=== PATIENT | male | born 1935 | race Caucasian/White ===

== ENCOUNTER → 2016-11-04 | Outpatient (REF) | payer MEDICARE ==
[2016-11-04 15:12] LABS: BASO % 0.5 % (0.0-1.0); EOS # 0.3 K/mm3 (0.0-0.50); EOS % 3.8 % (0.0-3.0); LARGE UNSTAINED CELL # 0.1 K/mm3 (0.0-0.4); LARGE UNSTAINED CELL % 1.9 % (0.0-4.0); LYMPH # 1.4 K/mm3 (1.5-4.5); MEAN CORPUSCULAR HEMOGLOBIN 30.5 pg (27.0-33.0); MEAN CORPUSCULAR HGB CONC 31.5 g/dl (32.0-36.5); MEAN CORPUSCULAR VOLUME 96.7 fl (80.0-96.0); MONO # 0.7 K/mm3 (0.0-0.8); MONO % 9.6 % (0.0-5.0); NEUTROPHILS # 4.9 K/mm3 (1.8-7.7); NEUTROPHILS % 67.2 % (36.0-66.0); PLATELET COUNT, AUTOMATED 197 k/mm3 (150-450); RED CELL DISTRIBUTION WIDTH 12.7 % (11.5-14.5); WHITE BLOOD COUNT 7.3 K/mm3 (4.0-10.0)
[2016-11-04 15:19] LABS: ALBUMIN 4.2 GM/DL (3.2-5.2); ALBUMIN/GLOBULIN RATIO 1.14 (1.00-1.93); ALKALINE PHOSPHATASE 139 U/L (45-117); ALT/SGPT 17 U/L (12-78); ANION GAP 11 MEQ/L (8-16); AST/SGOT 13 U/L (15-37); BILIRUBIN,TOTAL 0.9 MG/DL (0.2-1.0); BLOOD UREA NITROGEN 19 MG/DL (7-18); CALCIUM LEVEL 9.1 MG/DL (8.8-10.2); CARBON DIOXIDE LEVEL 28 MEQ/L (21-32); CHLORIDE LEVEL 105 MEQ/L (98-107); CREATININE FOR GFR 1.07 MG/DL (0.70-1.30); GLOMERULAR FILTRATION RATE > 60.0 (>42); GLUCOSE, FASTING 87 MG/DL (83-110); POTASSIUM SERUM 4.3 MEQ/L (3.5-5.1); SODIUM LEVEL 144 MEQ/L (136-145); TOTAL PROTEIN 7.9 GM/DL (6.4-8.2)
[2016-11-04 15:24] LABS: FOLATE 7.7 NG/ML (>5.4); VITAMIN B12 LEVEL 1309 PG/ML (247-911)
[2016-11-04 15:54] LABS: ERYTHROCYTE SEDIMENTATION RATE 5 mm/hr (0-20)
[2016-11-07 14:10] LABS: SJOGREN'S ANTI SS-A <0.2 AI (0.0-0.9); SJOGREN'S ANTI SS-B 3.9 AI (0.0-0.9); VITAMIN E LEVEL 9.5 mg/L (5.3-17.5)
== END ==
LOC: M LABNEURO 13:48
PROVIDERS: ATTEND Psychiatry & Neurology Neurology
DX: G62.9 Polyneuropathy, unspecified (principal)

== ENCOUNTER → 2016-11-14 | Outpatient (CLI) | payer MEDICARE ==
--- NOTE | 2016-11-16 10:07 | REP ---
Clinical: Foreign body. Technique: Brock and lateral views of the orbits. Findings: Right-sided ventriculoperitoneal shunt noted. No radiodense metallic foreign body identified. The osseous structures are grossly intact and normal. Impression: Appropriate MRI clearance. No radiodense metallic foreign body identified. Signed by Lon Jefferson MD 11/14/2016 01:37 P
== END ==
LOC: M LRY 12:49
PROVIDERS: ATTEND Psychiatry & Neurology Neurology
DX: T15.91XA Foreign body on external eye, part unspecified, right eye, initial encounter (principal); T15.92XA Foreign body on external eye, part unspecified, left eye, initial encounter; X58.XXXA Exposure to other specified factors, initial encounter; Y93.9 Activity, unspecified; Y92.9 Unspecified place or not applicable; Y99.8 Other external cause status

== ENCOUNTER → 2018-09-10 | Outpatient (REF) | payer MEDICARE ==
[2018-09-10 17:25] LABS: ALBUMIN 3.7 GM/DL (3.2-5.2); ALT/SGPT 25 U/L (12-78); BILIRUBIN,TOTAL 0.7 MG/DL (0.2-1.0); BLOOD UREA NITROGEN 25 MG/DL (7-18); CALCIUM LEVEL 8.7 MG/DL (8.8-10.2); CARBON DIOXIDE LEVEL 27 MEQ/L (21-32); CHLORIDE LEVEL 105 MEQ/L (98-107); CHOLESTEROL LEVEL 147 MG/DL (<200); GLOMERULAR FILTRATION RATE > 60.0 (>35); GLUCOSE, FASTING 83 MG/DL (70-100); HDL CHOLESTEROL 44 MG/DL (>40); LDL CHOLESTEROL 92 MG/DL (<100); NON-HDL-C 103 MG/DL; POTASSIUM SERUM 4.5 MEQ/L (3.5-5.1); SODIUM LEVEL 142 MEQ/L (136-145); TOTAL PROTEIN 7.3 GM/DL (6.4-8.2); TRIGLYCERIDES LEVEL 55 MG/DL (<150)
[2018-09-10 17:29] LABS: HEMATOCRIT 39.8 % (42.0-52.0); HEMOGLOBIN 12.8 g/dl (13.5-17.5); MEAN CORPUSCULAR HEMOGLOBIN 29.9 pg (27.0-33.0); MEAN CORPUSCULAR HGB CONC 32.2 g/dl (32.0-36.5); PLATELET COUNT, AUTOMATED 153 10^3/uL (150-450); RED BLOOD COUNT 4.28 10^6/uL (4.30-6.10); WHITE BLOOD COUNT 5.1 10^3/uL (4.0-10.0)
[2018-09-10 17:34] LABS: MALB URINE SIEMENS 53.9 MG/L; MAU/CREAT RATIO 27.5 MCG/MG (0.0-30.0)
== END ==
LOC: M SFHCLERA 09:50
PROVIDERS: ATTEND Family Medicine
DX: I51.9 Heart disease, unspecified (principal); F32.9 Major depressive disorder, single episode, unspecified; R41.3 Other amnesia; I10 Essential (primary) hypertension; E78.49 Other hyperlipidemia

== ENCOUNTER → 2018-10-15 | Outpatient (CLI) | payer MEDICARE ==
--- NOTE | 2018-10-17 15:02 | DEXA ---
AP SPINE L1 - L4 1.004 -1.5 -1.1 LT FEMUR TOTAL 0.757 -2.0 -1.2 LT NECK 0.656 -2.7 -1.6 RT FEMUR TOTAL 0.805 -1.6 -0.9 RT NECK 0.631 -2.9 -1.8 TOTAL BODY TOTAL OTHER L1-L2 0.913 -2.2 -1.7 COMMENTS: There is low bone density of the spine. There is osteoporosis of the left hip. There is osteoporosis of the right hip. There is degenerative change in the spine which may artificially elevate the BMD. FOLLOW-UP: Recommendation for the next bone density exam: 2 years. ANGIE
== END ==
LOC: M WHC 13:36
PROVIDERS: ATTEND Family Medicine
DX: Z13.820 Encounter for screening for osteoporosis (principal)

== ENCOUNTER → 2018-12-04 | Outpatient (REF) | payer MEDICARE ==
[2018-12-04 18:32] LABS: PTH INTACT 56.4 PG/ML (18.5-88.0); TOTAL 25(OH) VITAMIN D 45.2 NG/ML (30.0-100.0)
== END ==
LOC: M SFHCPLAZ 15:21
PROVIDERS: ATTEND Family Medicine
DX: M81.0 Age-related osteoporosis without current pathological fracture (principal)

== ENCOUNTER → 2020-02-03 | Outpatient (REF) | payer MEDICARE ==
[2020-02-03 12:40] LABS: ALBUMIN 3.6 GM/DL (3.2-5.2); ALT/SGPT 16 U/L (12-78); BILIRUBIN,TOTAL 0.9 MG/DL (0.2-1.0); BLOOD UREA NITROGEN 19 MG/DL (7-18); CALCIUM LEVEL 8.6 MG/DL (8.8-10.2); CARBON DIOXIDE LEVEL 25 MEQ/L (21-32); CHLORIDE LEVEL 108 MEQ/L (98-107); CHOLESTEROL LEVEL 153 MG/DL (<200); CREATININE FOR GFR 1.01 MG/DL (0.70-1.30); GLOMERULAR FILTRATION RATE > 60.0 (>35); GLUCOSE, FASTING 82 MG/DL (70-100); HDL CHOLESTEROL 36 MG/DL (>40); LDL CHOLESTEROL 100 MG/DL (<100); NON-HDL-C 117 MG/DL; POTASSIUM SERUM 4.2 MEQ/L (3.5-5.1); SODIUM LEVEL 140 MEQ/L (136-145); TOTAL PROTEIN 7.6 GM/DL (6.4-8.2); TRIGLYCERIDES LEVEL 83 MG/DL (<150)
[2020-02-03 13:17] LABS: TOTAL 25(OH) VITAMIN D 42.6 NG/ML (30.0-100.0)
== END ==
LOC: M SFHCPLAZ 09:42
PROVIDERS: ATTEND Family Medicine
DX: I11.0 Hypertensive heart disease with heart failure (principal); E78.2 Mixed hyperlipidemia; E55.9 Vitamin D deficiency, unspecified; M81.0 Age-related osteoporosis without current pathological fracture

== ENCOUNTER → 2021-01-21 | Outpatient (REF) | payer MEDICARE | LOC: M SFHCPLAZ 16:46 | PROVIDERS: ATTEND Family Medicine | DX: C44.622 Squamous cell carcinoma of skin of right upper limb, including shoulder (principal); C44.311 Basal cell carcinoma of skin of nose; L57.0 Actinic keratosis ==

== ENCOUNTER → 2021-02-23 | Outpatient (REF) | payer MEDICARE | LOC: M LAB REF 09:14 | PROVIDERS: ATTEND Dermatology | DX: L57.0 Actinic keratosis (principal); L57.8 Other skin changes due to chronic exposure to nonionizing radiation | CPT/HCPCS: 11623; 13132; 88305; 88331; G0463 ==

== ENCOUNTER → 2021-04-19 | Outpatient (CLI) | payer MEDICARE ==
[2021-04-19 11:42] LABS: HEMATOCRIT 43.4 % (42.0-52.0); HEMOGLOBIN 13.8 g/dl (13.5-17.5); MEAN CORPUSCULAR HEMOGLOBIN 27.9 pg (27.0-33.0); MEAN CORPUSCULAR HGB CONC 31.8 g/dl (32.0-36.5); MEAN CORPUSCULAR VOLUME 87.7 fl (80.0-96.0); PLATELET COUNT, AUTOMATED 110 10^3/uL (150-450); RED BLOOD COUNT 4.95 10^6/uL (4.30-6.10); WHITE BLOOD COUNT 6.7 10^3/uL (4.0-10.0)
[2021-04-19 13:12] LABS: ALBUMIN 3.4 GM/DL (3.2-5.2); BILIRUBIN,TOTAL 0.8 MG/DL (0.2-1.0); CALCIUM LEVEL 8.7 MG/DL (8.8-10.2); CHOLESTEROL RISK RATIO 3.864 (<5); CREATININE FOR GFR 1.25 MG/DL (0.70-1.30); GLOMERULAR FILTRATION RATE 58.6 (>35); POTASSIUM SERUM 4.1 MEQ/L (3.5-5.1); TOTAL PROTEIN 7.7 GM/DL (6.4-8.2)
== END ==
LOC: M WUC 09:53
PROVIDERS: ATTEND Family Medicine
DX: I11.0 Hypertensive heart disease with heart failure (principal); M81.0 Age-related osteoporosis without current pathological fracture; E78.2 Mixed hyperlipidemia; E55.9 Vitamin D deficiency, unspecified; D49.2 Neoplasm of unspecified behavior of bone, soft tissue, and skin

== ENCOUNTER 2021-07-11 13:22 | Inpatient (IN) | payer MEDICARE ==
[~2021-07-11] VITALS: Ht 167.6 cm; Wt 64.6 kg
[2021-07-11] MEDS ORDERED: LABETALOL 100MG/20ML VIAL IV STA ×2 (13:39→15:43)
[2021-07-11] MEDS ORDERED: ISOVUE-370 76% 100ML VIAL As Ordered ONE (13:56)
[2021-07-11 14:06] LABS: BASO % 0.3 % (0.0-1.0); EOS % 0.3 % (0.0-3.0); HEMOGLOBIN 15.2 g/dl (13.5-17.5); LYMPH % 15.9 % (24.0-44.0); MEAN CORPUSCULAR HEMOGLOBIN 27.6 pg (27.0-33.0); MEAN CORPUSCULAR HGB CONC 31.7 g/dl (32.0-36.5); MEAN CORPUSCULAR VOLUME 87.3 fl (80.0-96.0); MONO # 0.8 10^3/uL (0.0-0.8); MONO % 13.5 % (2.0-8.0); NEUTROPHILS # 4.3 10^3/uL (1.5-8.5); NEUTROPHILS % 69.4 % (36.0-66.0); WHITE BLOOD COUNT 6.2 10^3/uL (4.0-10.0)
[2021-07-11 14:16] LABS: PLATELET COUNT, AUTOMATED 94 10^3/uL (150-450)
[2021-07-11 14:45] LABS: RSV AMPLIFICATION NEGATIVE (NEGATIVE)
[2021-07-11 14:54] LABS: INR 1.14
[2021-07-11 14:55] LABS: PARTIAL THROMBOPLASTIN TIME 32.3 SECONDS (25.9-37.0)
[2021-07-11 15:20] LABS: BLOOD UREA NITROGEN 18 MG/DL (7-18); CALCIUM LEVEL 8.3 MG/DL (8.8-10.2); CARBON DIOXIDE LEVEL 27 MEQ/L (21-32); CHLORIDE LEVEL 105 MEQ/L (98-107); CK-MB VALUE MASS < 1.0 NG/ML (<3.6); CPK CREATINE PHOSPHOKINASE 47 U/L (39-308); CREATININE FOR GFR 1.24 MG/DL (0.70-1.30); GLOMERULAR FILTRATION RATE 59.1 (>35); GLUCOSE, FASTING 93 MG/DL (70-100); MB/CK RELATIVE INDEX 2.13 (< OR =4); SODIUM LEVEL 139 MEQ/L (136-145); TROPONIN I < 0.02 NG/ML (< 0.10)
[2021-07-11] MEDS ORDERED: PARO5TAB PO (17:05)
[2021-07-11] MEDS ORDERED: ATEN25TA PO (17:05)
[2021-07-11] MEDS ORDERED: ATOR1TAB21 PO (17:05)
[2021-07-11] MEDS ORDERED: ALEN10TA5 PO (17:05)
[2021-07-11 18:25] VITALS: BP 170/100
[2021-07-11] MEDS ORDERED: VITA500T41 PO (18:36)
[2021-07-11] MEDS ORDERED: D31000TA2 PO (18:36)
[2021-07-11 18:39] VITALS: BP 170/100
[2021-07-11] MEDS ORDERED: HOME MED LIST COMPLETE! XX SCH (18:40)
[2021-07-11] MEDS: ASPIRIN 300 MG SUPP PR SCH (19:45)
[2021-07-11 20:00] VITALS: BP 169/89
[2021-07-11 23:45] VITALS: BP 142/84
[2021-07-12 04:00] VITALS: BP 164/78
[2021-07-12 05:15] LABS: BASO % 0.1 % (0.0-1.0); HEMATOCRIT 40.5 % (42.0-52.0); LYMPH # 1.2 10^3/uL (1.5-5.0); LYMPH % 17.7 % (24.0-44.0); MEAN CORPUSCULAR HEMOGLOBIN 27.7 pg (27.0-33.0); MEAN CORPUSCULAR HGB CONC 32.3 g/dl (32.0-36.5); MEAN CORPUSCULAR VOLUME 85.6 fl (80.0-96.0); MONO % 14.5 % (2.0-8.0); NEUTROPHILS # 4.6 10^3/uL (1.5-8.5); NEUTROPHILS % 66.8 % (36.0-66.0); PLATELET COUNT, AUTOMATED 100 10^3/uL (150-450); RED BLOOD COUNT 4.73 10^6/uL (4.30-6.10); WHITE BLOOD COUNT 6.9 10^3/uL (4.0-10.0)
[2021-07-12 05:17] LABS: HEMOGLOBIN 13.1 g/dl (13.5-17.5)
[2021-07-12 05:29] LABS: ALBUMIN 3.4 GM/DL (3.2-5.2); BILIRUBIN,TOTAL 1.2 MG/DL (0.2-1.0); CALCIUM LEVEL 9.1 MG/DL (8.8-10.2); CREATININE FOR GFR 1.36 MG/DL (0.70-1.30); GLOMERULAR FILTRATION RATE 53.1 (>35); TOTAL PROTEIN 7.7 GM/DL (6.4-8.2)
[2021-07-12 08:00] VITALS: BP 168/94
[2021-07-12] MEDS: ASPIRIN 300 MG SUPP PR SCH (08:11)
[2021-07-12 10:44] LABS: TOTAL 25(OH) VITAMIN D 49.2 NG/ML (30.0-100.0)
[2021-07-12 11:29] LABS: CHOLESTEROL RISK RATIO 4.324 (<5); FREE THYROXINE INDEX 3.4 % (1.4-3.8); THYROID STIMULATING HORMONE 0.435 uIU/ML (0.358-3.740); THYROXINE (T4) 9.9 UG/DL (4.5-12.0)
[2021-07-12 12:00] VITALS: BP 182/102
[2021-07-12] MEDS: CYANOCOBALAMIN 500 MCG TAB PO SCH (13:31)
[2021-07-12] MEDS: VITAMIN D 1,000 INTERNATIONAL UNITS TABLET PO SCH (13:31)
[2021-07-12] MEDS: ATORVASTATIN 20 MG TAB PO SCH (13:31)
[2021-07-12] MEDS: PARoxetine 10MG TABLET PO SCH (13:31)
[2021-07-12] MEDS: atenoloL 25 MG TAB PO SCH (13:31)
[2021-07-12 15:00] VITALS: BP 154/80
[2021-07-12 16:00] VITALS: BP 162/98
[2021-07-12 20:00] VITALS: BP 135/94
[2021-07-13] VITALS: BP 132/94
[2021-07-13 04:00] VITALS: BP 117/88
[2021-07-13 05:46] LABS: BASO % 0.3 % (0.0-1.0); EOS % 0.2 % (0.0-3.0); HEMATOCRIT 46.2 % (42.0-52.0); HEMOGLOBIN 14.8 g/dl (13.5-17.5); LYMPH # 1.9 10^3/uL (1.5-5.0); LYMPH % 21.5 % (24.0-44.0); MEAN CORPUSCULAR HEMOGLOBIN 27.6 pg (27.0-33.0); MONO # 1.9 10^3/uL (0.0-0.8); MONO % 21.2 % (2.0-8.0); NEUTROPHILS % 56.1 % (36.0-66.0); RED BLOOD COUNT 5.37 10^6/uL (4.30-6.10); WHITE BLOOD COUNT 8.9 10^3/uL (4.0-10.0)
[2021-07-13 06:02] LABS: BLOOD UREA NITROGEN 22 MG/DL (7-18); CALCIUM LEVEL 8.9 MG/DL (8.8-10.2); CARBON DIOXIDE LEVEL 23 MEQ/L (21-32); CHLORIDE LEVEL 108 MEQ/L (98-107); GLOMERULAR FILTRATION RATE > 60.0 (>35); GLUCOSE, FASTING 98 MG/DL (70-100); SODIUM LEVEL 139 MEQ/L (136-145)
[2021-07-13 06:18] LABS: PLATELET COUNT, AUTOMATED 97 10^3/uL (150-450)
[2021-07-13 08:00] VITALS: BP 142/93
[2021-07-13 08:27] LABS: CHOLESTEROL LEVEL 161 MG/DL (<200); HDL CHOLESTEROL 35 MG/DL (>40); LDL CHOLESTEROL 109 MG/DL (<100); NON-HDL-C 126 MG/DL; TRIGLYCERIDES LEVEL 84 MG/DL (<150)
[2021-07-13] MEDS: PARoxetine 10MG TABLET PO SCH (08:43)
[2021-07-13] MEDS: VITAMIN D 1,000 INTERNATIONAL UNITS TABLET PO SCH (08:43)
[2021-07-13] MEDS: ATORVASTATIN 20 MG TAB PO SCH (08:43)
[2021-07-13] MEDS: atenoloL 25 MG TAB PO SCH ×2 (08:43→10:02)
[2021-07-13] MEDS: CYANOCOBALAMIN 500 MCG TAB PO SCH (08:43)
[2021-07-13] MEDS ORDERED: ASPIRIN 81 MG CHEW TABLET PO SCH (09:00)
[2021-07-13 12:00] VITALS: BP 138/96
[2021-07-13] MEDS: APIXABAN 5 MG TAB (ELIQUIS) PO SCH ×2 (13:28→21:00)
[2021-07-13 16:00] VITALS: BP 138/96
[2021-07-13 20:00] VITALS: BP 143/98
[2021-07-14] VITALS (7 sets, daily range): BP systolic 113–157; BP diastolic 70–96
[2021-07-14 04:30] LABS: HEMATOCRIT 46.6 % (42.0-52.0); HEMOGLOBIN 15.2 g/dl (13.5-17.5); MEAN CORPUSCULAR HEMOGLOBIN 27.7 pg (27.0-33.0); MEAN CORPUSCULAR HGB CONC 32.6 g/dl (32.0-36.5); PLATELET COUNT, AUTOMATED 114 10^3/uL (150-450); RED BLOOD COUNT 5.48 10^6/uL (4.30-6.10); WHITE BLOOD COUNT 8.8 10^3/uL (4.0-10.0)
[2021-07-14 04:48] LABS: BLOOD UREA NITROGEN 26 MG/DL (7-18); CARBON DIOXIDE LEVEL 24 MEQ/L (21-32); CHLORIDE LEVEL 103 MEQ/L (98-107); CREATININE FOR GFR 1.12 MG/DL (0.70-1.30); GLOMERULAR FILTRATION RATE > 60.0 (>35); GLUCOSE, FASTING 111 MG/DL (70-100); POTASSIUM SERUM 3.6 MEQ/L (3.5-5.1); SODIUM LEVEL 137 MEQ/L (136-145)
[2021-07-14] MEDS: atenoloL 25 MG TAB PO SCH (08:43)
[2021-07-14] MEDS: APIXABAN 5 MG TAB (ELIQUIS) PO SCH ×2 (08:59→23:52)
[2021-07-14] MEDS: ATORVASTATIN 20 MG TAB PO SCH (08:59)
[2021-07-14] MEDS: PARoxetine 10MG TABLET PO SCH (09:00)
[2021-07-14] MEDS: CYANOCOBALAMIN 500 MCG TAB PO SCH (09:00)
[2021-07-14] MEDS: VITAMIN D 1,000 INTERNATIONAL UNITS TABLET PO SCH (09:00)
[2021-07-15 08:00] VITALS: BP 124/64
[2021-07-15 08:29] LABS: HEMATOCRIT 45.7 % (42.0-52.0); HEMOGLOBIN 14.4 g/dl (13.5-17.5); MEAN CORPUSCULAR HEMOGLOBIN 27.4 pg (27.0-33.0); MEAN CORPUSCULAR HGB CONC 31.5 g/dl (32.0-36.5); PLATELET COUNT, AUTOMATED 108 10^3/uL (150-450); RED BLOOD COUNT 5.25 10^6/uL (4.30-6.10); WHITE BLOOD COUNT 7.9 10^3/uL (4.0-10.0)
[2021-07-15 09:20] LABS: CALCIUM LEVEL 9.2 MG/DL (8.8-10.2); CREATININE FOR GFR 1.28 MG/DL (0.70-1.30); POTASSIUM SERUM 3.6 MEQ/L (3.5-5.1)
[2021-07-15] MEDS: APIXABAN 5 MG TAB (ELIQUIS) PO SCH ×2 (10:07→20:22)
[2021-07-15] MEDS: ATORVASTATIN 20 MG TAB PO SCH (10:07)
[2021-07-15] MEDS: PARoxetine 10MG TABLET PO SCH (10:08)
[2021-07-15] MEDS: atenoloL 25 MG TAB PO SCH (10:08)
[2021-07-15] MEDS: CYANOCOBALAMIN 500 MCG TAB PO SCH (10:09)
[2021-07-15] MEDS: VITAMIN D 1,000 INTERNATIONAL UNITS TABLET PO SCH (10:09)
[2021-07-15 12:00] VITALS: BP 137/75
[2021-07-15 14:00] VITALS: BP 141/82
[2021-07-15 15:57] VITALS: BP 141/82
[2021-07-16 05:30] VITALS: BP 138/80
[2021-07-16 08:53] LABS: HEMATOCRIT 45.4 % (42.0-52.0); HEMOGLOBIN 14.5 g/dl (13.5-17.5); MEAN CORPUSCULAR HEMOGLOBIN 27.5 pg (27.0-33.0); MEAN CORPUSCULAR HGB CONC 31.9 g/dl (32.0-36.5); PLATELET COUNT, AUTOMATED 105 10^3/uL (150-450); RED BLOOD COUNT 5.28 10^6/uL (4.30-6.10); WHITE BLOOD COUNT 6.9 10^3/uL (4.0-10.0)
[2021-07-16] MEDS: atenoloL 25 MG TAB PO SCH (09:00)
[2021-07-16] MEDS: CYANOCOBALAMIN 500 MCG TAB PO SCH (09:16)
[2021-07-16] MEDS: ATORVASTATIN 20 MG TAB PO SCH (09:16)
[2021-07-16] MEDS: APIXABAN 5 MG TAB (ELIQUIS) PO SCH ×2 (09:16→20:25)
[2021-07-16] MEDS: PARoxetine 10MG TABLET PO SCH (09:16)
[2021-07-16] MEDS: VITAMIN D 1,000 INTERNATIONAL UNITS TABLET PO SCH (09:16)
[2021-07-16 09:23] LABS: BLOOD UREA NITROGEN 30 MG/DL (7-18); CALCIUM LEVEL 9.1 MG/DL (8.8-10.2); CARBON DIOXIDE LEVEL 27 MEQ/L (21-32); CHLORIDE LEVEL 105 MEQ/L (98-107); GLOMERULAR FILTRATION RATE > 60.0 (>35); GLUCOSE, FASTING 98 MG/DL (70-100); POTASSIUM SERUM 3.8 MEQ/L (3.5-5.1); SODIUM LEVEL 139 MEQ/L (136-145)
[2021-07-17 06:00] VITALS: BP 136/85
[2021-07-17 06:31] LABS: HEMATOCRIT 47.2 % (42.0-52.0); MEAN CORPUSCULAR HEMOGLOBIN 27.7 pg (27.0-33.0); MEAN CORPUSCULAR HGB CONC 31.8 g/dl (32.0-36.5); MEAN CORPUSCULAR VOLUME 87.1 fl (80.0-96.0); PLATELET COUNT, AUTOMATED 106 10^3/uL (150-450); RED BLOOD COUNT 5.42 10^6/uL (4.30-6.10); WHITE BLOOD COUNT 7.7 10^3/uL (4.0-10.0)
[2021-07-17 06:54] LABS: BLOOD UREA NITROGEN 24 MG/DL (7-18); CARBON DIOXIDE LEVEL 22 MEQ/L (21-32); CHLORIDE LEVEL 108 MEQ/L (98-107); CREATININE FOR GFR 1.08 MG/DL (0.70-1.30); GLOMERULAR FILTRATION RATE > 60.0 (>35); GLUCOSE, FASTING 88 MG/DL (70-100); POTASSIUM SERUM 3.9 MEQ/L (3.5-5.1); SODIUM LEVEL 140 MEQ/L (136-145)
[2021-07-17] MEDS: atenoloL 25 MG TAB PO SCH (09:00)
[2021-07-17] MEDS: PARoxetine 10MG TABLET PO SCH (10:39)
[2021-07-17] MEDS: VITAMIN D 1,000 INTERNATIONAL UNITS TABLET PO SCH (10:39)
[2021-07-17] MEDS: CYANOCOBALAMIN 500 MCG TAB PO SCH (10:40)
[2021-07-17] MEDS: ATORVASTATIN 20 MG TAB PO SCH (10:40)
[2021-07-17] MEDS: APIXABAN 5 MG TAB (ELIQUIS) PO SCH ×2 (10:40→20:38)
[2021-07-17 10:42] VITALS: BP 100/64
[2021-07-17 14:00] VITALS: BP 121/77
[2021-07-18 06:00] VITALS: BP 133/81
[2021-07-18] MEDS: APIXABAN 5 MG TAB (ELIQUIS) PO SCH ×2 (07:56→21:38)
[2021-07-18] MEDS: VITAMIN D 1,000 INTERNATIONAL UNITS TABLET PO SCH (07:56)
[2021-07-18] MEDS: CYANOCOBALAMIN 500 MCG TAB PO SCH (07:56)
[2021-07-18 07:57] VITALS: BP 126/80
[2021-07-18] MEDS: PARoxetine 10MG TABLET PO SCH (07:57)
[2021-07-18] MEDS: ATORVASTATIN 20 MG TAB PO SCH (07:57)
[2021-07-18] MEDS: atenoloL 25 MG TAB PO SCH (07:57)
[2021-07-18 09:41] LABS: HEMATOCRIT 48.4 % (42.0-52.0); HEMOGLOBIN 15.3 g/dl (13.5-17.5); MEAN CORPUSCULAR HEMOGLOBIN 27.8 pg (27.0-33.0); MEAN CORPUSCULAR HGB CONC 31.6 g/dl (32.0-36.5); PLATELET COUNT, AUTOMATED 128 10^3/uL (150-450); WHITE BLOOD COUNT 8.5 10^3/uL (4.0-10.0)
[2021-07-18 10:00] LABS: CALCIUM LEVEL 9.8 MG/DL (8.8-10.2); CREATININE FOR GFR 1.32 MG/DL (0.70-1.30)
[2021-07-19 06:00] VITALS: BP 136/80
[2021-07-19 07:26] LABS: HEMATOCRIT 43.4 % (42.0-52.0); HEMOGLOBIN 13.9 g/dl (13.5-17.5); MEAN CORPUSCULAR VOLUME 87.3 fl (80.0-96.0); PLATELET COUNT, AUTOMATED 109 10^3/uL (150-450); RED BLOOD COUNT 4.97 10^6/uL (4.30-6.10); WHITE BLOOD COUNT 7.7 10^3/uL (4.0-10.0)
[2021-07-19 07:52] LABS: CALCIUM LEVEL 9.5 MG/DL (8.8-10.2); CREATININE FOR GFR 1.23 MG/DL (0.70-1.30); GLOMERULAR FILTRATION RATE 59.7 (>35); POTASSIUM SERUM 4.2 MEQ/L (3.5-5.1)
[2021-07-19] MEDS: atenoloL 25 MG TAB PO SCH (09:00)
[2021-07-19] MEDS: PARoxetine 10MG TABLET PO SCH (09:25)
[2021-07-19] MEDS: VITAMIN D 1,000 INTERNATIONAL UNITS TABLET PO SCH (09:25)
[2021-07-19] MEDS: APIXABAN 5 MG TAB (ELIQUIS) PO SCH ×2 (09:25→20:18)
[2021-07-19] MEDS: ATORVASTATIN 20 MG TAB PO SCH (09:25)
[2021-07-19] MEDS: CYANOCOBALAMIN 500 MCG TAB PO SCH (09:25)
[2021-07-19] MEDS ORDERED: ELIQ5TAB PO (22:16)
[2021-07-20 06:00] VITALS: BP 127/76
[2021-07-20 07:11] LABS: HEMATOCRIT 42.2 % (42.0-52.0); HEMOGLOBIN 13.4 g/dl (13.5-17.5); MEAN CORPUSCULAR HEMOGLOBIN 27.5 pg (27.0-33.0); MEAN CORPUSCULAR HGB CONC 31.8 g/dl (32.0-36.5); MEAN CORPUSCULAR VOLUME 86.7 fl (80.0-96.0); PLATELET COUNT, AUTOMATED 103 10^3/uL (150-450); RED BLOOD COUNT 4.87 10^6/uL (4.30-6.10); WHITE BLOOD COUNT 6.5 10^3/uL (4.0-10.0)
[2021-07-20 07:46] LABS: ALBUMIN 3.2 GM/DL (3.2-5.2); ALT/SGPT 14 U/L (12-78); BILIRUBIN,TOTAL 0.7 MG/DL (0.2-1.0); BLOOD UREA NITROGEN 25 MG/DL (7-18); CALCIUM LEVEL 9.3 MG/DL (8.8-10.2); CARBON DIOXIDE LEVEL 27 MEQ/L (21-32); CHLORIDE LEVEL 106 MEQ/L (98-107); CREATININE FOR GFR 1.08 MG/DL (0.70-1.30); GLOMERULAR FILTRATION RATE > 60.0 (>35); GLUCOSE, FASTING 89 MG/DL (70-100); POTASSIUM SERUM 4.2 MEQ/L (3.5-5.1); SODIUM LEVEL 139 MEQ/L (136-145); TOTAL PROTEIN 7.4 GM/DL (6.4-8.2)
[2021-07-20 08:58] VITALS: BP 125/74
[2021-07-20] MEDS: ATORVASTATIN 20 MG TAB PO SCH (08:58)
[2021-07-20] MEDS: PARoxetine 10MG TABLET PO SCH (08:58)
[2021-07-20] MEDS: atenoloL 25 MG TAB PO SCH (08:58)
[2021-07-20] MEDS: CYANOCOBALAMIN 500 MCG TAB PO SCH (08:58)
[2021-07-20] MEDS: VITAMIN D 1,000 INTERNATIONAL UNITS TABLET PO SCH (08:58)
[2021-07-20] MEDS: APIXABAN 5 MG TAB (ELIQUIS) PO SCH (08:59)
[2021-07-20] MEDS ORDERED: APIXABAN 5 MG TAB (ELIQUIS) PO ONE (10:00)
== END 2021-07-20 10:15 | DRG 66 ==
LOC: M ED 13:22 → EDBD 13:22 → M ED INP 16:44 → ENRESERV 17:05 → M PCU 18:33 → M MSPAV 07-14 22:21
PROVIDERS: ADMIT Internal Medicine; ATTEND Family Medicine
DX: I63.9 Cerebral infarction, unspecified (principal); I10 Essential (primary) hypertension; N40.0 Benign prostatic hyperplasia without lower urinary tract symptoms; F41.9 Anxiety disorder, unspecified; F32.9 Major depressive disorder, single episode, unspecified; Z87.891 Personal history of nicotine dependence; Z79.899 Other long term (current) drug therapy; Z98.2 Presence of cerebrospinal fluid drainage device; Z85.828 Personal history of other malignant neoplasm of skin; I34.0 Nonrheumatic mitral (valve) insufficiency; E78.5 Hyperlipidemia, unspecified; I48.0 Paroxysmal atrial fibrillation; I69.391 Dysphagia following cerebral infarction; I69.398 Other sequelae of cerebral infarction

== ENCOUNTER → 2022-06-20 | Outpatient (CLI) | payer MEDICARE, MEDICAID ==
[~2022-06-20] MED LIST: ALEN10TA5 PO; ATEN25TA PO; ATOR1TAB21 PO; ELIQ5TAB PO; PARO5TAB PO; VITA100093 PO; VITA500T41 PO
== END ==
LOC: M PLAIMG 11:16
PROVIDERS: ATTEND Neurological Surgery
DX: S06.5X9D Traumatic subdural hemorrhage with loss of consciousness of unspecified duration, subsequent encounter (principal)